=== PATIENT | female | born 1980 | race Asian ===

== ENCOUNTER 2019-02-05 14:08 | Emergency (ER) | payer BC, OTHER ==
[~2019-02-05] VITALS: Ht 157.5 cm; Wt 55.5 kg
[2019-02-05 14:16] VITALS: BP 143/85; PULSE 76; RESP 18; Ht 157.5 cm; Wt 55.5 kg
[2019-02-05] MEDS ORDERED: SOD CHLORIDE 0.9% 1,000 ML IV STA (14:57)
[2019-02-05] MEDS ORDERED: POTASSIUM CHLORIDE (SR) 20 MEQ TAB PO STA (15:50)
--- NOTE | 2019-02-05 16:26 | ERD ---
ER Documentation Chief Complaint Chief Complaint PT started new medication for anxiety, feeling dizzie/foggy HPI Patient is a 38-year-old female, past medical history of anxiety, presents to the ER for concerns of feeling "foggy like I am on cloud 9" for the last 2 days. Patient states 3 days ago she was started on antianxiety medication by her psychiatrist Dr. Zapien at the [facility] facility at . Patient states she was started on Cymbalta, gabapentin and clonidine all at the same time. Patient states she took these medications for the last 2 days and she started to develop symptoms. Patient did not take her medications today. Patient denies any chest pain, shortness breath, nausea, vomiting, blurry vision, headache, unilateral weakness, slurred speech, difficulty ambulating, fevers, chills. Patient denies any homicidal ideations or suicidal ideations. PCP is Dr. Lesly WHITTAKER All systems reviewed and are negative except as per history of present illness. Allergies Allergies: Coded Allergies: No Known Allergy (Unverified , 02/05/19) PMhx/Soc Medical and Surgical Hx: pt denies Medical Hx, pt denies Surgical Hx History of Surgery: No Anesthesia Reaction: No Hx Neurological Disorder: No Hx Respiratory Disorders: No Hx Cardiac Disorders: No Hx Psychiatric Problems: No Hx Miscellaneous Medical Probl: No Hx Alcohol Use: No Hx Substance Use: No Hx Tobacco Use: No Smoking Status: Never smoker FmHx Family History: No diabetes Physical Exam Vitals Vital Signs Date Temp Pulse Resp B/P (MAP) Pulse Ox O2 O2 Flow FiO2 Time Delivery Rate 02/05/19 98.5 76 18 143/85 99 14:16 (104) Physical Exam GENERAL: Well-developed, well-nourished female. Appears in no acute distress. Speaking in full sentences. HEAD: Normocephalic, atraumatic. EYES: Pupils are equally reactive bilaterally. EOMs grossly intact. No conjunctival erythema. ENT: Moist mucous membranes. No uvula deviation. No kissing tonsils. NECK: Supple. No meningismus. Normal range of motion of the neck. LUNG: Clear to auscultation bilaterally. No rhonchi, wheezing, rales or coarse breath sounds. HEART: Regular rate and rhythm. No murmurs, rubs or gallops. EXTREMITIES: Equal pulses bilaterally. No peripheral clubbing, cyanosis or edema. No unilateral leg swelling. NEUROLOGIC: Alert and oriented x3, cooperative. Mood and affect appropriate to situation. Cranial nerves II through XII are grossly intact. Normal speech. Motor exam: 5/5 strength in upper and lower extremities. Sensory exam: Sensation intact to light touch on all four extremities. Cerebellar function exam: Rapid alternating movements intact. No dysmetria on [id number]-od-[id number] and tvzy-eo-yfdo test. Steady gait. No pronator drift. Equal network security architect strength bilaterally. SKIN: Normal color. Warm and dry. No rashes or lesions. Result Diagram: 02/05/19 1506 02/05/19 1506 Results 24 hrs Laboratory Tests Test 02/05/19 15:06 02/05/19 15:12 White Blood Count 5.4 10^3/ul Red Blood Count 5.00 10^6/ul Hemoglobin 13.0 g/dl Hematocrit 41.4 % Mean Corpuscular Volume 82.8 fl Mean Corpuscular Hemoglobin 26.0 pg Mean Corpuscular Hemoglobin Concent 31.4 g/dl Red Cell Distribution Width 14.3 % Platelet Count 413 10^3/UL Mean Platelet Volume 9.3 fl Immature Granulocytes % 0.600 % Neutrophils % 59.7 % Lymphocytes % 27.1 % Monocytes % 9.9 % Eosinophils % 1.8 % Basophils % 0.9 % Nucleated Red Blood Cells % 0.0 /100WBC Immature Granulocytes # 0.030 10^3/ul Neutrophils # 3.2 10^3/ul Lymphocytes # 1.5 10^3/ul Monocytes # 0.5 10^3/ul Eosinophils # 0.1 10^3/ul Basophils # 0.1 10^3/ul Nucleated Red Blood Cells # 0.0 10^3/ul Urine Color COLORLESS Urine Clarity CLEAR Urine pH 8.0 Urine Specific [place] 1.001 Urine Ketones NEGATIVE mg/dL Urine Nitrite NEGATIVE mg/dL Urine Bilirubin NEGATIVE mg/dL Urine Urobilinogen NEGATIVE mg/dL Urine Leukocyte Esterase NEGATIVE [place]/ul Urine Hemoglobin NEGATIVE mg/dL Urine Glucose NEGATIVE mg/dL Urine Total Protein NEGATIVE mg/dl Sodium Level 144 mmol/L Potassium Level 3.1 mmol/L Chloride Level 105 mmol/L Carbon Dioxide Level 30 mmol/L Anion Gap 9 Blood Urea Nitrogen 8 mg/dl Creatinine 1.04 mg/dl Est Glomerular Filtrat Rate mL/min 59 mL/min Glucose Level 122 mg/dl Calcium Level 9.3 mg/dl Total Bilirubin 0.6 mg/dl Direct Bilirubin 0.00 mg/dl Indirect Bilirubin 0.6 mg/dl Aspartate Amino Transf (AST/SGOT) 27 IU/L Alanine Aminotransferase (ALT/SGPT) 38 IU/L Alkaline Phosphatase 55 IU/L Total Protein 8.6 g/dl Albumin 4.6 g/dl Globulin 4.00 g/dl Albumin/Globulin Ratio 1.15 Lipase 371 U/L POC Beta HCG, Qualitative NEGATIVE Current Medications Medications Dose Sig/Emigdio Start Time Status Last (Trade) Ordered Route PRN Stop Time Admin Dose Reason Admin Sodium 1,000 ml @ Q1H STAT 02/05/19 DC 02/05/19 Chloride 1,000 mls/hr IV 14:57 15:12 02/05/19 15:56 Potassium 40 meq ONCE STAT 02/05/19 DC 02/05/19 Chloride PO 15:50 15:57 (Klor-Con 20) 02/05/19 15:54 Procedures/MDM MEDICAL DECISION MAKING: Patient is a 2-year-old female, past medical history of anxiety, presents the ER for medication side effects. Patient reports feeling "foggy" for the last 3 d ays after starting 3 antianxiety medications. Patient denies any homicidal or suicidal ideations. Patient discontinued medications today given her symptoms.. Vital signs were reviewed. Patient is afebrile. Patient was not hypoxic. Patient was hemodynamically stable. IV line was established. Blood work was obtained. CBC showed no evidence of systemic infection or severe anemia. CMP showed no e vidence of electrolyte abnormalities except for a potassium of 3.1, severe acidosis, alkalosis, or liver disease. Creatinine was noted to be 1.04. Patient does not know her baseline creatinine. Patient was advised that she will need to follow-up with her primary care physician to ensure that her creatinine level normalizes. Lipase showed no evidence of acute pancreatitis. UA showed no evidence of acute infection or hematuria. Urine test was negative. Patient was given 40 mEq of potassium PO for her mild hypokalemia. Patient encouraged to use eat potassium rich foods to prevent further hypokalemia. Upon reexamination, patient reported improvement in symptoms after receiving IV fluids. At this time, patient presentation was consistent with medication adverse effect. Patient was advised to discontinue all medications and follow- up with her psychiatrist who prescribed the medication for reevaluation. Low suspicion for any homicidal ideations or suicidal ideations. Low suspicion for ACS, arrhythmia, pericarditis, sepsis, anemia, severe electrolyte abnormalities, UTI, pyonephritis, nephrolithiasis, PE, CVA, TIA and other emergencies. Patient was nontoxic, [id number] prior to discharge. DISCHARGE: At this time, patient is stable for discharge and outpatient management. I have instructed the patient to follow-up with his/her primary care physician in 1-2 days. I have discussed with the patient the possibility of needing to see a specialist for further workup and imaging studies if symptoms persist. I have instructed the patient to promptly return to the ER for any new or worsening symptoms including increased pain, fever, nausea, vomiting, weakness or LOC. The patient and/or family expressed understanding of and agreement with this plan. All questions were answered. Home care instructions were provided. Disclaimer: Inadvertent spelling and grammatical errors are likely due to EHR/dictation software use and do not reflect on the overall quality of patient care. Also, please note that the electronic time recorded on this note does not necessarily reflect the actual time of the patient encounter. Departure Diagnosis: Primary Impression: Medication adverse effect Encounter type: initial encounter Qualified Codes: T50.905A - Adverse effect of unspecified drugs, medicaments and biological substances, initial encounter Additional Impressions: Hypokalemia Creatinine elevation Condition: Fair Patient Instructions: Eating a High Potassium Diet Referrals: [facility] YOU HAVE RECEIVED A MEDICAL SCREENING EXAM AND THE RESULTS INDICATE THAT YOU DO NOT HAVE A CONDITION THAT REQUIRES URGENT TREATMENT IN THE EMERGENCY DEPARTMENT. FURTHER EVALUATION AND TREATMENT OF YOUR CONDITION CAN WAIT UNTIL YOU ARE SEEN IN YOUR DOCTORS OFFICE WITHIN THE NEXT 1-2 DAYS. IT IS YOUR RESPONSIBILITY TO MAKE AN APPOINTMENT FOR FOLOW-UP CARE. IF YOU HAVE A PRIMARY DOCTOR --you should call your primary doctor and schedule an appointment IF YOU DO NOT HAVE A PRIMARY DOCTOR YOU CAN CALL OUR PHYSICIAN REFERRAL HOTLINE AT IF YOU CAN NOT AFFORD TO SEE A PHYSICIAN YOU CAN CHOSE FROM THE FOLLOWING [facility] CLINICS [facility] [address] [facility]. [facility] [address] [facility] [facility] [address] [facility] [facility] [address] [facility] [address] [facility]. [facility]. [address] [facility]. [facility] YOU HAVE RECEIVED A MEDICAL SCREENING EXAM AND THE RESULTS INDICATE THAT YOU DO NOT HAVE A CONDITION THAT REQUIRES URGENT TREATMENT IN THE EMERGENCY DEPARTMENT. FURTHER EVALUATION AND TREATMENT OF YOUR CONDITION CAN WAIT UNTIL YOU ARE SEEN IN YOUR DOCTORS OFFICE WITHIN THE NEXT 1-2 DAYS. IT IS YOUR RESPONSIBILITY TO MAKE AN APPOINTMENT FOR FOLOW-UP CARE. IF YOU HAVE A PRIMARY DOCTOR --you should call your primary doctor and schedule and appointment IF YOU DO NOT HAVE A PRIMARY DOCTOR YOU CAN CALL OUR PHYSICIAN REFERRAL HOTLINE AT . IF YOU CAN NOT AFFORD TO SEE A PHYSICIAN YOU CAN CHOSE FROM THE FOLLOWING [facility] INSTITUTIONS: [facility] [address] [place] [address] [facility] [address] [place] [address] [facility] + [facility] [address] [place] [address] Additional Instructions: Follow-up with your primary care physician Dr. Grace for further management of your symptoms. Recheck blood work advised. Stay hydrated. Follow-up with your psychiatrist to discuss your medication side effects. Call your primary care doctor TOMORROW for an appointment during the next 1-2 days.See the doctor sooner or return here if your condition worsens before your appointment time. HEMA MICHELLE PA-C Feb 05, 2019 16:26
== END 2019-02-05 16:16 | disposition home or self-care (01) ==
LOC: FTE 14:08
DX: E87.6 Hypokalemia (principal); T50.905A Adverse effect of unspecified drugs, medicaments and biological substances, initial encounter
CPT/HCPCS: 36415; 80053; 81003; 81025; 83690; 85025; 96360; 99284; J7030